=== PATIENT | female | born 1965 | race Native Hawaiian/Other Pacific Islander ===

== ENCOUNTER 2017-09-25 18:31 | Outpatient (CLI) | payer OTHER | END 2017-09-25 21:09 | disposition home or self-care (01) | LOC: RAD 18:31 | DX: R05 Cough (principal); R50.9 Fever, unspecified ==

== ENCOUNTER 2017-09-29 14:08 | Outpatient (CLI) | payer BC | END 2017-09-29 19:09 | disposition home or self-care (01) | LOC: RAD 14:08 | DX: M17.9 Osteoarthritis of knee, unspecified (principal) ==

== ENCOUNTER 2018-10-01 12:57 | Emergency (ER) | payer BC ==
[~2018-10-01] VITALS: Ht 157.5 cm; Wt 100.2 kg
[2018-10-01 14:04] LABS: POTASSIUM 3.6 mmol/L (3.6-5.2)
[2018-10-01 14:13] LABS: PLATELET COUNT 274 K/uL (152-353)
[2018-10-01 15:28] VITALS: BP 148/70; TEMP 98
== END 2018-10-01 15:28 | disposition home or self-care (01) ==
LOC: ED 12:57
PROVIDERS: Emergency Medicine
DX: G51.0 Bell's palsy (principal)
CPT/HCPCS: 36415; 80053; 85027; 99283

== ENCOUNTER 2018-10-05 09:47 | Outpatient (CLI) | payer BC | END 2018-10-05 23:14 | disposition home or self-care (01) | LOC: LABW 09:47 | PROVIDERS: Family Medicine | DX: R60.0 Localized edema (principal); R06.02 Shortness of breath | CPT/HCPCS: 36415; 80061; 84439; 84443; 93005 ==

== ENCOUNTER 2019-03-03 11:00 | Emergency (ER) | payer BC ==
[~2019-03-03] VITALS: Ht 157.5 cm; Wt 100.2 kg
[2019-03-03 11:05] VITALS: TEMP 97.9
[2019-03-03 11:35] LABS: PLATELET COUNT 302 K/uL (152-353)
[2019-03-03 11:44] LABS: SODIUM 137 mmol/L (136-145)
[2019-03-03 12:42] VITALS: BP 136/73
== END 2019-03-03 12:42 | disposition home or self-care (01) ==
LOC: ED 11:00
PROVIDERS: Student in an Organized Health Care Education/Training Program
DX: F41.0 Panic disorder [episodic paroxysmal anxiety] (principal)
CPT/HCPCS: 80048; 84443; 84484; 85027; 93005; 99283

== ENCOUNTER 2019-09-08 11:20 | Outpatient (CLI) | payer OTHER | END 2019-09-08 23:05 | disposition home or self-care (01) | LOC: LABW 11:20 | DX: R51 Headache (principal); F41.9 Anxiety disorder, unspecified; H66.93 Otitis media, unspecified, bilateral; J11.1 Influenza due to unidentified influenza virus with other respiratory manifestations | CPT/HCPCS: 87502 ==

== ENCOUNTER 2020-04-09 08:25 | Outpatient (CLI) | payer OTHER | END 2020-04-09 19:08 | disposition home or self-care (01) | LOC: RAD 08:25 | DX: M54.5 Low back pain (principal); M25.551 Pain in right hip; M54.31 Sciatica, right side ==